=== PATIENT | male | born 2000 | race Caucasian/White ===

== ENCOUNTER 2025-06-09 16:48 | Emergency (ER) | payer BC, SELFPAY ==
[2025-06-09 16:59] VITALS: BP 144/98; PULSE 101; RESP 18; TEMP 37; O2SAT 98
--- NOTE | 2025-06-09 17:31 | ED.URI ---
HPI - URI/Sore Throat General Chief Complaint: Upper Respiratory Infection Stated Complaint: Allergic Reaction Time Seen by Provider: 06/09/25 17:00 Source: patient and RN notes reviewed Mode of arrival: ambulatory Limitations: no limitations History of Present Illness HPI Narrative: 25-year-old male presents Express Care complaining of possible allergic reaction. Patient says he uses anabolic steroids and has Been using some off and on over the last 2 years. Patient said he did an injection this morning around 9:00 a.m. than around 2:00 p.m. after he exercised you reported having nausea and vomiting and a rapid onset of congestion, watery eyes and a flushed face. Patient says he has never had a reaction like this before after injection. Patient denies trying anything you today. Patient denies any chest pain, difficulty breathing, wheezing, swelling to his face, tongue, throat, neck, difficulty clearing secretions, dysphagia, fevers, cough, upper respiratory symptoms, or any other symptoms patient says he has not tried any [id number] for symptoms. Related Data Allergies Allergy/AdvReac Type Severity Reaction Status Date / Time No Known Allergies Allergy Verified 06/09/25 17:05 Review of Systems Review of Systems: CONSTITUTIONAL: Denies fever, chills, or sweats. Positive for flushing of the face. EYES: Denies visual changes, redness, or discharge. ENT: Positive for rhinorrhea, congestion. Negative for sore throat, dysphagia, difficulty clearing secretions, or otalgia. CARDIOVASCULAR: Denies chest pain, palpitations, or edema. RESPIRATORY: Denies cough, wheezing, or dyspnea. GASTROINTESTINAL: Denies abdominal pain, nausea, vomiting, or diarrhea. GENITOURINARY: Denies dysuria or hematuria. SKIN: Denies rash or itching. MUSCULOSKELETAL: Denies back pain, joint pain, or myalgia. NEUROLOGIC: Denies headache, numbness, or weakness. PSYCHIATRIC: Denies anxiety or depression. All other systems reviewed are negative, except as documented in HPI. PMFSH Comments At the time of my signature, I reviewed and agree with the nursing past medical, surgical, social, and family history. There is no relevant family history pertinent to the patient complaint. Exam Narrative: GENERAL: This is a well-nourished, well-developed adult, in no apparent distress. They are non ill-appearing, nontoxic appearing. HEAD: normocephalic, atraumatic. Face is flushed and blanchable. No obvious swelling. EYES: Sclera clear/white. Conjunctiva normal. Eyes with watery discharge. Vision is grossly intact. Extraocular movements intact pupils PERRLA. EARS: External ears normal, auditory canals clear and without drainage, TMs normal without perforation. Hearing grossly intact. NOSE: External nose normal with no obvious nasal discharge, nasal turbinates erythematous with rhinorrhea. THROAT: Mucous membranes moist, posterior pharynx clear, without erythema or swelling. Uvula midline. Postnasal drip present. OROPHARYNX: Tongue is normal, no swelling. Good dentition. No gingivitis. NECK: Neck supple, non-tender without lymphadenopathy, masses or thyromegaly. CARDIOVASCULAR: Regular rate and rhythm without murmurs, gallops, or rubs. RESPIRATORY: Clear to auscultation. Breath sounds equal bilaterally. No wheezes, rales, or rhonchi. Respiratory rate normal, respiratory effort nonlabored, no respiratory distress SKIN: Upper chest red and flushed, blanchable. No wheels .no pruritus. NEURO: awake, alert, and oriented to person, place and time. There were no obvious focal neurologic abnormalities. EXTREMITIES: No joint tenderness, effusion, or edema noted. BACK: Nontender without deformity. No CVA tenderness. Course Course Emergency Course: Portions of this record may have been created with voice recognition software Level of Care: Express Care Visit Vital Signs Vital signs: Vital Signs Temperature 98.6 F 06/09/25 16:59 Pulse Rate 101 H 06/09/25 16:59 Respiratory Rate 18 06/09/25 16:59 Blood Pressure 144/98 H 06/09/25 16:59 Pulse Oximetry 98 06/09/25 16:59 Temperature 98.6 F 06/09/25 16:59 Pulse Rate 101 H 06/09/25 16:59 Respiratory Rate 18 06/09/25 16:59 Blood Pressure 144/98 H 06/09/25 16:59 Pulse Oximetry 98 06/09/25 16:59 Reviewed MDM - URI/Sore Throat MDM Narrative Medical decision making narrative: No evidence of anaphylaxis. Patient is in no apparent distress, no respiratory distress. Lungs are clear to auscultation. Vital signs hemodynamically stable. Obvious swelling to the face, tongue, throat. Patient denies any difficulty clearing secretions. Patient reports nausea and vomiting however it has subsided. Likely reaction to patient's anabolic steroid injection, he states that is not a prescription. Advised patient to stop using the vial. Patient was given an injection of Solu-Medrol will be sent home with a course of prednisone, also advised to use Zyrtec and Pepcid next item days. Strict ER precautions and to call 911 was discussed with patient is best if symptoms worsen, developed swelling to his face, tongue, throat, difficulty breathing, wheezing, worsening nausea and vomiting, hives, or any serious concerns. Discussed physical exam findings. Advised supportive measures and signs/symptoms to go to the ER. Pt is appropriate for outpt treatment and f/u. Differential Diagnosis Differential diagnosis: Likely upper respiratory infection, viral infection and other (Medication reaction, allergic reaction, anaphylactic reaction) Critical Care Time Critical Care Time Critical Care Time: No Discharge Plan Discharge Clinical Impression: Medication reaction Patient Disposition: Home Condition: Stable Instructions: General Allergic Reaction (ED) Additional Instructions: Take the prednisone as directed. Start the prednisone tomorrow. Take 10 mg Zyrtec daily by mouth the next 5 days. Take Pepcid daily 20 mg by mouth next 5 days. Avoid testosterone injection at used may be a delayed reaction. Follow-up PCP in 3-5 days. If he developed swelling to her face, tongue, throat, lips, difficulty clearing secretions, difficulty swallowing, worsening nausea and vomiting, wheezing, difficulty breathing, shortness of breath, or any serious concerns please call 911 and go to the ER immediately. Patient Language: Arabic Prescriptions: New prednisone 20 mg tablet 40 mg PO DAILY 5 Days Qty: 10 0RF Follow-up/Referrals: PHYSICIAN,[facility] UP OPERATOR [Primary Care Provider, Internal Medicine] Time of Disposition: 17:29
== END 2025-06-09 17:33 | disposition home or self-care (01) ==
DX: R22.0 Localized swelling, mass and lump, head (principal); R11.2 Nausea with vomiting, unspecified; T38.7X5A Adverse effect of androgens and anabolic congeners, initial encounter
CPT/HCPCS: 96372; 99203; G0463; J2919

== ENCOUNTER 2025-07-04 10:49 | Emergency (ER) | payer BC, SELFPAY ==
--- NOTE | 2025-07-04 10:53 | ED_ITS ---
HPI - Wound/Laceration General Chief Complaint: Wound/Laceration Stated Complaint: STAPLE REMOVAL Time Seen by Provider: 07/04/25 10:52 Source: patient Mode of arrival: ambulatory Limitations: no limitations History of Present Illness HPI narrative: patient is a 25-year-old male who presents for staple removal. Patient was on vacation in [place] it when he by hand head with a tree branch and received 6 aime. Was told to wait 7-10 days. States it has been 6 days. Related Data Allergies Allergy/AdvReac Type Severity Reaction Status Date / Time No Known Allergies Allergy Verified 07/04/25 11:10 Review of Systems 2 Review of Systems: All systems reviewed & are unremarkable except as noted in HPI and below Constitutional: Constitutional: Denies body ache(s), Denies chills, Denies fatigue, Denies fever(s), Denies headache(s), Denies malaise and Denies weakness Eyes: Eyes: Denies blurry vision, Denies irritation and Denies loss of vision ENT: Denies otalgia, Denies headache(s), Denies nasal discharge, Denies sinus pain and Denies sore throat Cardiovascular: Cardiovascular: Denies chest pain, Denies irregular heart rhythm and Denies dyspnea Respiratory: Respiratory: Denies dyspnea Gastrointestinal: Gastrointestinal: Denies abdominal pain, Denies melena, Denies hematochezia, Denies diarrhea, Denies nausea and Denies vomiting Musculoskeletal: Musculoskeletal: Denies back pain, Denies myalgias and Denies arthralgias Integumentary/Breasts: Skin/Breast: Denies pruritus, Denies rash and Reports wounds Neurologic: Denies headache(s), Denies loss of vision and Denies weakness Psychiatric: Psychiatric: Reports no additional psychiatric complaints Endocrine: Endocrine: Denies fatigue PMFSH Comments At time of signature, agree with nursing past medical, surgical, social and family history. There is no relevant family history pertinent to the presenting complaint. Exam 2 Const: General: cooperative, healthy appearing, comfortable, no acute distress and well nourished Nutritional Appearance: well nourished O rientation/consciousness: patient oriented x3 Limitations: no limitations HENMT: Head: normal to inspection, normocephalic and atraumatic Head images: 1. Six aime present Ears: hearing grossly normal bilaterally and external ears normal F michael/Nose/Sinus: Normal external nose present, normal facial exam and face symmetric Face and sinus: normal facial exam and face symmetric Mouth: Yes lip normal Eyes: General: appearance normal, both eyes and all related structures A lignment and Position: alignment normal and position normal Periorbital: p eriorbital findings normal Eyelids: eyelids normal Pupils: Equal, round and reactive pupils present EOM: EOMs intact bilaterally Neck: Neck: normal visual inspection, full ROM and supple Chest: Chest palpation & inspection: normal inspection of the chest Resp: Effort & Inspection: normal respiratory effort and able to speak in complete sentences Auscultation: clear to auscultation bilaterally Cardio: Rate: regular rate Rhythm: regular rhythm Heart sounds: S1 normal heart sound present and S2 normal heart sound present GI: Inspection: normal to inspection Skin: General skin exam: normal color and no rashes or lesions noted Neuro: General: patient oriented x3 and moves all extremities Cranial nerves: Yes Equal, round and reactive pupils present Speech: normal speech Gait exam (Neuro): Normal gait present Extrem: General: normal to inspection, full ROM and no edema Psych: Appearance: grossly normal and well kempt Mental Status: mental status grossly normal Speech and movement: Normal speech and movement present Affect: normal affect Attitude: cooperative Thought process: Normal thought process present Course Course Emergency Course: Patient is aware of diagnosis, understands and agrees to treatment plan. Anticipatory guidance given. Patient agrees to follow-up as directed and is aware of reasons to seek care at the emergency department. Portions of this record may have been created with voice recognition software Level of Care: Express Care Visit Vital Signs Vital signs: Reviewed MDM - Wound/Laceration MDM Narrative Medical decision making narrative: 6 aime removed Pt well hydrated appearing, in no respiratory distress, hemodynamically stable. Recommend supportive care. The patient is stable at time of discharge the clinical impression was discussed and the patient was given the opportunity to ask questions, which were addressed as completely as possible given the information available at present. Anticipatory guidance and return to care precautions were discussed and the importance of primary care follow-up was stressed and encouraged. The patient voiced understanding of the plan, indications to return, and the need for follow-up. Exam findings show no acute concerns or changes Patient is appropriate for outpatient treatment and follow-up. Differential Diagnosis Differential diagnosis: Likely laceration and other ( suture removal) Medical Records Attestation: I reviewed the patient's medical records. Discharge Plan Discharge Clinical Impression: Removal of aime Patient Disposition: Home Condition: Stable Instructions: Staple Care (ED) Additional Instructions: do not pick at your scabs the. it will come off on its own. Please follow-up with your primary care doctor as needed. If you have any worsening of symptoms or any other urgent concerns please go to the ER. Patient Language: Croatian Prescriptions: No Action prednisone 20 mg tablet 40 mg PO DAILY 5 Days Qty: 10 0RF Follow-up/Referrals: UNKNOWN,DOCTOR [Non-Staff] Time of Disposition: 11:29
[2025-07-04 11:04] VITALS: BP 128/68; PULSE 56; RESP 16; TEMP 36.7; O2SAT 100
== END 2025-07-04 11:31 | disposition home or self-care (01) ==
PROVIDERS: Emergency Provider Nurse Practitioner Family
DX: S01.01XD Laceration without foreign body of scalp, subsequent encounter (principal); X58.XXXD Exposure to other specified factors, subsequent encounter
CPT/HCPCS: 99211; G0463